=== PATIENT | female | born 1950 ===

== ENCOUNTER 2018-07-31 18:18 | Emergency (ER) | payer MEDICAID, OTHER ==
[2018-07-31 18:19] VITALS: BMI 29.0
[2018-07-31] MEDS ORDERED: Sodium Chloride 0.9% 1,000 ML IV STA (18:47)
--- NOTE | 2018-07-31 18:47 | C.PDOC ---
History Of Present Illness 67 y/o female with history of HTN presents to ED with c/o back pain for 15 days associated with constipation, dysuria, nausea and urinary frequency. Patient states she saw PMD recently for symptoms, was given medication, finished course with minimal relief. Patient took Ibuprofen at 1pm today for pain and currently denies vomiting, fever, chills, vaginal bleeding, headache, blood in stool, hematuria or any other complaints at this time. Time Seen by Provider: 07/31/18 18:40 Chief Complaint (Nursing): Back Pain History Per: Patient History/Exam Limitations: no limitations Onset/Duration Of Symptoms: Days Current Symptoms Are (Timing): Still Present Past Medical History Reviewed: Historical Data, Nursing Documentation, Vital Signs Vital Signs: Last Vital Signs Temp 98.2 F 07/31/18 18:24 Pulse 72 07/31/18 18:24 Resp 20 07/31/18 18:24 BP 167/85 H 07/31/18 18:24 Pulse Ox 99 07/31/18 18:24 - Medical History PMH: Arthritis, HTN Surgical History: No Surg Hx - [facility] TETANUS TOXOID ADMINIST (09/13/13) Family History: States: No Known Family Hx, Hypertension (mother) - Social History Hx Tobacco Use: No Hx Alcohol Use: No Hx Substance Use: No - Immunization History Hx Tetanus Toxoid Vaccination: Yes Hx Influenza Vaccination: Yes Hx Pneumococcal Vaccination: Yes Review Of Systems Except As Marked, All Systems Reviewed And Found Negative. Constitutional: Negative for: Fever, Chills Gastrointestinal: Positive for: Nausea, Constipation. Negative for: Vomiting Genitourinary: Positive for: Dysuria, Frequency. Negative for: Incontinence, Hematuria, Vaginal Bleeding Musculoskeletal: Positive for: Back Pain Physical Exam - Physical Exam Additional Physical Exam Comments: Constitutional: No acute distress. Head: Normocephalic. Atraumatic. Eyes: PERRL. ENT: Moist mucous membranes. Neck: Supple. Cardiovascular: Regular rate. Radial pulse 2+ bilaterally. Chest: No tenderness. Respiratory: Clear to auscultation bilaterally. GI: Soft. Nontender. Nondistended. Back: No CVA tenderness. Musculoskeletal: No tenderness or swelling of extremities. Skin: No rash. Neurologic: Alert, no focal deficit. ED Course And Treatment - Laboratory Results Result Diagrams: 07/31/18 19:05 07/31/18 19:05 O2 Sat by Pulse Oximetry: 99 (RA) Pulse Ox Interpretation: Normal Medical Decision Making Medical Decision Making: Plan: * CT abd/pelvis with IV contrast * UA * Toradol * Zofran * Blood work * IV fluids CT abd/pelvis EXAM: CT Abdomen and Pelvis with IV contrast CLINICAL HISTORY: RLQ PAIN, NAUSEA, CONSTIPATION TECHNIQUE: Axial computed tomography images of the abdomen and pelvis with intravenous contrast. CONTRAST: With intravenous contrast. COMPARISON: None provided. FINDINGS: LUNG BASES: Pulmonary venous congestive changes. The lung bases appear clear otherwise. No pleural effusions are seen. LIVER: Unremarkable. GALLBLADDER AND BILE DUCTS: The gallbladder appears within normal limits. No radioopaque gallstones are seen. No biliary ductal dilatation is evident. PANCREAS: Unremarkable. SPLEEN: Unremarkable. ADRENAL GLANDS: Unremarkable. KIDNEYS, URETERS, AND BLADDER: The kidneys appear within normal limits. There is no hydronephrosis or hydroureter. No urinary calculi are seen. STOMACH AND BOWEL: Unremarkable appearance of the stomach and bowel. No evidence of bowel obstruction. No evidence suggesting enteritis or colitis. APPENDIX: No evidence of acute appendicitis on CT examination. PERITONEUM: No free fluid. No free air. LYMPH NODES: No lymphadenopathy is evident. REPRODUCTIVE: Unremarkable as visualized. VASCULATURE: No evidence of abdominal aortic aneurysm. BONES: No aggressive appearing osseous lesion. No acute osseous pathology evident. IMPRESSION: Pulmonary venous congestive changes. No acute intra-abdominal or pelvic abnormality. Electronically signed on Jul 31, 2018 8:48:05 PM EST by: Jose Luis Waldron M.D., [facility] Certified By [facility] [employer] Trained MRI and CT Specialist Labs unremarkable. UA negative. Will discharge, f/u PMD, return to ED for worsening pain, fever, vomiting, dyspnea, or any other problem. Disposition - Disposition Referrals: Dwaine Rodriguez MD [Medical Doctor] - Disposition: HOME/ ROUTINE Disposition Time: 21:58 Condition: STABLE Instructions: Flank Pain Forms: [facility] (Turkmen) - Clinical Impression Clinical Impression: Flank pain - Scribe Statement The provider has reviewed the documentation as recorded by the Scribe Nicolasa Gallardo All medical record entries made by the Scribe were at my direction and personally dictated by me. I have reviewed the chart and agree that the record accurately reflects my personal performance of the history, physical exam, medical decision making, and the department course for this patient. I have also personally directed, reviewed, and agree with the discharge instructions and disposition.
[2018-07-31 19:12] LABS: HEMOGLOBIN 12.6 g/dL (11.0-16.0); WHITE BLOOD COUNT 5.6 K/uL (4.8-10.8)
[2018-07-31 19:16] LABS: BASO % 0.4 % (0.0-2.0); EOS # 0.8 K/uL (0.0-0.7); EOS % 14.3 % (0.0-4.0); LYMPH # 1.7 K/uL (1.0-4.3); MEAN CORPUSCULAR HEMOGLOBIN 29.6 pg (27.0-31.0); MEAN CORPUSCULAR HGB CONC 33.8 g/dL (33.0-37.0); MEAN PLATELET VOLUME 8.3 fL (7.2-11.7); MONO # 0.4 K/uL (0.0-0.8); MONO % 7.8 % (0.0-10.0); NEUT # 2.6 K/uL (1.8-7.0); NEUT % 47.5 % (50.0-75.0); RBC 4.27 Mil/uL (3.80-5.20); RED CELL DISTRIBUTION WIDTH 15.1 % (11.5-14.5)
[2018-07-31 19:20] LABS: ALB/GLOB RATIO 1.5 (1.0-2.1); ALBUMIN 3.8 g/dL (3.5-5.0); ALT/SGPT 35 U/L (9-52); AST/SGOT 32 U/L (14-36); BLOOD UREA NITROGEN 9 mg/dL (7-17); CALCIUM 8.5 mg/dl (8.6-10.4); GFR NON-AFRICAN AMERICAN > 60; LIPASE 169 U/L (23-300)
[2018-07-31 19:29] LABS: MEAN CELL VOLUME 87.5 fL (81.0-99.0)
[2018-07-31] MEDS ORDERED: Iodixanol 320 MG/ML 100 ML BOTTLE IV ONE (19:52)
[2018-07-31 20:55] VITALS: RESP 16
[2018-07-31 21:22] LABS: SQUAMOUS EPITHIAL 1 /hpf (0-5); URINE BILIRUBIN NEGATIVE (NEGATIVE); URINE BLOOD NEGATIVE (NEGATIVE); URINE CLARITY Clear (Clear); URINE COLOR Straw (YELLOW); URINE GLUCOSE (UA) NORMAL (Normal); URINE LEUKOCYTE ESTERASE NEG Leu/uL (Negative); URINE PROTEIN NEGATIVE (NEGATIVE); URINE UROBILINOGEN NORMAL mg/dL (0.2-1.0)
[2018-07-31 22:14] VITALS: BP 136/82; PULSE 64; TEMP 98.2; O2SAT 97
--- NOTE | 2018-08-01 09:41 | CT ---
Date of service: 07/31/2018 PROCEDURE: CT Abdomen and Pelvis without intravenous contrast HISTORY: flank pain, nausea, constipation, dysuria COMPARISON: None. 05/09/2014 TECHNIQUE: Technique. Contrast dose: Radiation dose: Total exam DLP = 973.5 mGy-cm. This CT exam was performed using one or more of the following dose reduction techniques: Automated exposure control, adjustment of the mA and/or kV according to patient size, and/or use of iterative reconstruction technique. FINDINGS: LOWER THORAX: Mild nonspecific bibasilar interstitial changes LIVER: Unremarkable. No gross lesion or ductal dilatation. GALLBLADDER AND BILE DUCTS: Unremarkable. PANCREAS: Unremarkable. No gross lesion or ductal dilatation. SPLEEN: Unremarkable. ADRENALS: Unremarkable. No mass. KIDNEYS AND URETERS: Unremarkable. No hydronephrosis. No solid mass. VASCULATURE: Unremarkable. No aortic aneurysm. No aortic atherosclerotic calcification or mural plaque present. BOWEL: Colonic diverticulosis. No obstruction. No gross mural thickening. APPENDIX: Unremarkable. Normal appendix. PERITONEUM: Unremarkable. No free fluid. No free air. LYMPH NODES: Unremarkable. No enlarged lymph nodes. BLADDER: Unremarkable. REPRODUCTIVE: Unremarkable. BONES: No acute fracture. OTHER FINDINGS: None. IMPRESSION: Colonic diverticulosis. Mild bibasilar interstitial lung changes.
== END 2018-07-31 22:17 | disposition home or self-care (01) ==
LOC: C.ER 18:18
DX: R10.9 Unspecified abdominal pain (principal)
CPT/HCPCS: 74177; 80053; 81001; 83690; 85025; 87086; 96361; 96374; 96375; 99284; J1885; J2405; J7030; Q9967